=== PATIENT | male | born 1975 | race Caucasian/White ===

== ENCOUNTER 2020-09-29 18:00 | Emergency (ER) | payer OTHER ==
[~2020-09-29] VITALS: Ht 180.3 cm; Wt 89.6 kg
[2020-09-29] MEDS ORDERED: TETANUS/DIPHTHERIA TOX ADULT 0.5 ML SYR ONE (18:46)
[2020-09-29] MEDS ORDERED: SILVER NITRATE SWABS ONE ×2 (18:47→21:23)
[2020-09-29] MEDS ORDERED: DIPHTH/TETANUS/ACEL. PERTUSSIS 0.5 ML SYR IM ONE (19:00)
[2020-09-29 20:29] VITALS: BP 169/98
== END 2020-09-29 20:29 | disposition home or self-care (01) ==
LOC: FSED 18:25
DX: S61.012A Laceration without foreign body of left thumb without damage to nail, initial encounter (principal); W45.8XXA Other foreign body or object entering through skin, initial encounter; Z23 Encounter for immunization
CPT/HCPCS: 90471; 90714; 96372; 99282